=== PATIENT | female | born 1970 | race African-American/Black ===

== ENCOUNTER 2017-02-27 10:51 | Emergency (ER) | payer SELFPAY ==
[~2017-02-27] VITALS: Ht 170.2 cm; Wt 81.6 kg
[~2017-02-27 10:51] MED LIST: MOTRIN800 MG PO; PERCOCET 325 MG1 TA2 PO
--- NOTE | 2017-02-27 11:22 | ED SKIN/ALLERGY COMPLAINT ---
History of Present Illness General Chief Complaint: Allergy Symptoms Stated Complaint: ?ALLERGIC REACTION Source: patient, old records Exam Limitations: no limitations Vital Signs & Intake/Output Vital Signs & Intake/Output Vital Signs Date Time Temp Pulse Resp B/P B/P Pulse O2 O2 Flow FiO2 Mean Ox Delivery Rate 02/27 1331 97.0 81 18 128/72 99 Room Air 02/27 1117 98 Room Air 02/27 1059 98.0 98 18 151/93 99 Room Air Allergies Coded Allergies: Iodinated Contrast- Oral and IV Dye (Intermediate, HIVES 02/27/17) MDX - Bismuth Subsalicylate (From PEPTO BISMOL) (Intermediate, HIVES 11/11/11) Reconcile Medications Amoxicillin/Potassium Clav (Augmentin 875-125 Tablet) 875 MG-125 MG TABLET 1 TAB PO BID abscess Triage Note: PT STATES THAT SHE WOKE THIS AM WITH SWOLLEN EYES ,LIPS AND TONGUE. TOOK NO MEDS AND THE SWELLING STARTED TO GO DOWN. DENIES ANY NEW PRODUCTS. PT ALSO POINTED OUT THAT SHE HAS A LARGE LUMP IN HER NECK. DENIES DIFFICULTY SWALLOWING Triage Nurses Notes Reviewed? yes Onset: Abrupt Duration: week(s): (1), constant Timing: recent history Severity: moderate Severity Numbers: 6 Possible Factors: no cause identified Associated Symptoms: fever chills HPI: 46-year-old female with history of biliary colic presents to the ER for evaluation complaining of generalized malaise not feeling well with subjective fever chills for the past 1 week. She states she woke up this morning and her eyes appeared swollen and she felt tingling and swelling in her lips and tongue. She is not taken anything for her symptoms. No history of allergic reactions in the past or similar symptoms. Symptoms have improved without taking anything however she still feels lethargic. She denies fever chills at this time no nausea no vomiting. She denies any rash or skin. She states that about a week ago when the symptoms began she noticed a lump in her throat sticking out of her neck. No history of similar symptoms in the past no history of thyroid problems. No recent weight loss (ROMEL CASILLAS,STEPHANIE) Past History Travel History Traveled to [place] past 21 day No Medical History Any Pertinent Medical History? 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 No (STEPHANIE LOZADA) Review of Systems Review of Systems Constitutional: Reports: see HPI. Comments Review of systems: See HPI, All other systems negative. Constitutional, see hpi HEENT: No visual changes no sore throat no congestion Cardiovascular: No chest pain , no palpitation Skin: no rashes, no change in skin Respiratory: No dyspnea no cough no sputum GI: No nausea no vomiting, no diarrhea : No dysuria Muscle skeletal: No joint pain, no joint swelling, no back pain, no neck pain, Neurologic: No numbness no confusion, no headache Psych: No stress Heme/endocrine: No bruising Immunology: No lymphadenopathy (STEPHANIE LOZADA) Physical Exam Physical Exam General Appearance: well developed/nourished, no apparent distress, alert Comments: Well-developed well-nourished patient in no apparent distress. Head/Face: Atraumatic, no maxillary/frontal sinus tenderness, no facial swelling Eyes: PERRL, EOMI, no conjunctival injection. No nystagmus Ear:External auditory canal and Tympanic membranes clear, no erythema, no FB. Nose: atraumatic.Normal inspection Throat: Moist mucous membranes.Pharynx normal. No pharyngeal erythema/exudate seen. No stridor/drooling or assymetry. No swelling or edema. No trismus no uvula displacement Neck: Supple, no overlying erythema induration fluctuance nontender no lymphadenopathy, FROM Back: FROM Cardiovascular: Regular rate and rhythms no murmurs Respiratory: No respiratory distress. Patient speaking in full complete sentences. Breath sounds clear to auscultation bilaterally: NO W/R/R Extremities: full range of motion Neuro: awake, alert, and oriented to person, place and time. There were no obvious focal neurologic abnormalities. Skin: Warm & dry;No appreciable rash on exposed skin Psych: Mood affect normal, normal memory normal judgment. (STEPHANIE LOZADA) Progress Differential Diagnosis: allergic reaction, anaphylaxis, contact dermatitis, thryoid disorder,a bscess, malignancy, ludwigs, epilgotittis, strep pharyngiits Plan of Care: Orders Procedure Date/time Status TSH REFLEX 02/276 Complete COMPREHENSIVE METABOLIC PANEL 02/28 1216 Complete CBC WITHOUT DIFFERENTIAL 02/28 1216 Complete Laboratory Tests 02/27/17 1231: Anion Gap 9, Estimated GFR > 60, BUN/Creatinine Ratio 21.1, Glucose 82, Calcium 9.8, Total Bilirubin 0.6, AST 18, ALT 25, Alkaline Phosphatase 54, Total Protein 8.1, Albumin 4.8, Globulin 3.3, Albumin/Globulin Ratio 1.5, TSH &T3 &Free T4 Intrp 1.460, CBC w Diff NO MAN DIFF REQ, RBC 4.38, MCV 99.2 H, MCH 33.3 H, RDW 13.7, MPV 7.7, Gran % 75.4 H, Lymphocytes % 13.8 L, Monocytes % 6.8, Eosinophils % 3.9, Basophils % 0.1, Absolute Granulocytes 8.5 H, Absolute Lymphocytes 1.6, Absolute Monocytes 0.8 H, Absolute Eosinophils 0.4, Absolute Basophils 0, PUBS MCHC 33.6 Patient medicated with Solu-Medrol IV labs ordered ultrasound ordered secondary to allergy to IV contrast I discussed with the patient at length all of their results. Speaking in full complete sentences in no apparent distress no drooling I had an extensive conversation regarding need for close follow up with their primary care physician/ent this week as well as return precautions. I answered all of their questions, they feel comfortable with the plan and follow-up care. I discussed with the patient/family the medications that they will receive. I gave them signs and symptoms that could indicate an adverse reaction. I have advised them to limit their activities until they can see how they respond to the medication. (ROMEL CASILLAS,STEPHANIE) Diagnostic Imaging: Viewed by Me: Ultrasound. Discussed w/RAD: Ultrasound. Radiology Impression: PATIENT: JOSEPH FAY PRESENT AGE: 46 PATIENT ACCOUNT NO: [id number] : 69 LOCATION: [facility] ORDERING PHYSICIAN: STEPHANIE CASILLAS SERVICE DATE: 02/27/17-1249 EXAM TYPE: US - US- SOFT TISSUES OF HEAD & NECK EXAMINATION: US THYROID CLINICAL INFORMATION: 46- year-old female with a palpable midline lump in the neck. The lump has been there for several months. She reports trouble swallowing. Rule out abscess. COMPARISON: None TECHNIQUE: Linear transducer galicia-scale and color Doppler examination with attention to the region of the thyroid. FINDINGS: SIZE: Measurements of the thyroid lobes and nodules are given in sagittal, anteroposterior and transverse dimensions respectively. Right Thyroid Lobe: The right lobe measures 4.8 x 1.6 x 1.9 cm. Left Thyroid Lobe: The left lobe measures 4.6 x 1.7 x 2.1 cm. Isthmus: The isthmus measures 0.3 cm. PARENCHYMA: The gland echotexture is within normal limits. Thyroid vascularity is within normal limits. RIGHT THYROID LOBE: No nodules. ISTHMUS: No nodules. LEFT THYROID LOBE: No nodules. NODES: There is a 0.9 x 1 cm lymph node within the right lateral neck. There is a 0.7 cm lymph node within the left lateral neck. The palpable lesion measures 2.9 x 2.3 x 2.2 cm. It is heterogeneous in echotexture and appears cystic. It demonstrates vascularity around its periphery. It contains a somewhat thick septation. IMPRESSION: 1. The thyroid gland is normal in size. 2. There are small bilateral lymph nodes within the neck as described. 3. The palpable lesion within the midline neck region measures 2.9 x 2.3 x 2.2 cm. It is primarily cystic but contains a somewhat thick septation within its mid aspect. In the correct clinical setting, this may represent an abscess. However, the etiology of this lesion is uncertain. Further evaluation with cross -sectional imaging, i.e. contrast-enhanced CT examination may be of benefit in further characterizing this lesion. DICTATED BY: DYAN LAZO MD DATE/TIME DICTATED:02/27/171325 BLENDER / COOK:CHANDRIKA DATE/TIME TRANSCRIBED:1325 CONFIDENTIAL, DO NOT COPY WITHOUT APPROPRIATE AUTHORIZATION. < Electronically signed in Other Vendor System> SIGNED BY: DYAN LAZO MD 02/27/17 3515 (STEPHANIE LOZADA) Departure Departure Time of Disposition: 1403 Disposition: HOME OR SELF CARE Condition: Stable Clinical Impression Primary Impression: Abscess Referrals: PATIENT HAS NO PRIMARY CARE DR (PCP/Family) Additional Instructions: augmentin as directed. follow up with ear nose and throat physician dr castro. return in 2-3 days for check up. return at anytime sooner with any concerns thsi was sent to [facility] Departure Forms: Customer Survey General Discharge Information Prescriptions: Current Visit Scripts Amoxicillin/Potassium Clav (Augmentin 875-125 Tablet) 1 TAB PO BID #20 TAB (STEPHANIE LOZADA) PA/[employer] Co-Sign Statement Statement: ED Attending supervision documentation- I saw and evaluated the patient. I have also reviewed all the pertinent lab results and diagnostic results. I agree with the findings and the plan of care as documented in the PA's/[employer]'s documentation. x I have reviewed the ED Record and agree with the PA's/[employer]'s documentation. [] Additions or exceptions (if any) to the PAs/[employer]'s note and plan are summarized below: [] (OSWALDO ALONZO,BERNARDO)
[2017-02-27 12:45] LABS: ABSOLUTE BASOPHIL COUNT 0 /CUMM (0.0-0.2); ABSOLUTE EOSINOPHIL COUNT 0.4 /CUMM (0.0-0.7); ABSOLUTE GRANULOCYTE CT 8.5 /CUMM (1.4-6.5); ABSOLUTE LYMPH COUNT 1.6 /CUMM (1.2-3.4); ABSOLUTE MONOCYTE COUNT 0.8 /CUMM (0.10-0.60); BASOPHIL % 0.1 % (0.0-2.0); EOSINOPHIL % 3.9 % (0-5); GRANULOCYTE % 75.4 % (42.2-75.2); HEMATOCRIT 43.5 % (37-47); MEAN CORPUSCULAR HGB 33.3 PG (27.0-31.0); MEAN CORPUSCULAR HGB CONC 33.6 G/DL (33.0-37.0); MEAN CORPUSCULAR VOLUME 99.2 FL (81.0-99.0); MEAN PLATELET VOLUME 7.7 FL (7.4-10.4); PLATELET COUNT 260 /CUMM (130-400); RBC DISTRIBUTION WIDTH 13.7 % (11.5-14.5); RED BLOOD CELL CT 4.38 /CUMM (4.20-5.40); WHITE BLOOD CELL COUNT 11.3 /CUMM (4.8-10.8)
[2017-02-27 13:31] VITALS: BP 128/72
--- NOTE | 2017-02-27 13:43 | ULTRASOUND REPORT ---
EXAMINATION: US THYROID CLINICAL INFORMATION: 46-year-old female with a palpable midline lump in the neck. The lump has been there for several months. She reports trouble swallowing. Rule out abscess. COMPARISON: None TECHNIQUE: Linear transducer galicia-scale and color Doppler examination with attention to the region of the thyroid. FINDINGS: SIZE: Measurements of the thyroid lobes and nodules are given in sagittal, anteroposterior and transverse dimensions respectively. Right Thyroid Lobe: The right lobe measures 4.8 x 1.6 x 1.9 cm. Left Thyroid Lobe: The left lobe measures 4.6 x 1.7 x 2.1 cm. Isthmus: The isthmus measures 0.3 cm. PARENCHYMA: The gland echotexture is within normal limits. Thyroid vascularity is within normal limits. RIGHT THYROID LOBE: No nodules. ISTHMUS: No nodules. LEFT THYROID LOBE: No nodules. NODES: There is a 0.9 x 1 cm lymph node within the right lateral neck. There is a 0.7 cm lymph node within the left lateral neck. The palpable lesion measures 2.9 x 2.3 x 2.2 cm. It is heterogeneous in echotexture and appears cystic. It demonstrates vascularity around its periphery. It contains a somewhat thick septation. IMPRESSION: 1. The thyroid gland is normal in size. 2. There are small bilateral lymph nodes within the neck as described. 3. The palpable lesion within the midline neck region measures 2.9 x 2.3 x 2.2 cm. It is primarily cystic but contains a somewhat thick septation within its mid aspect. In the correct clinical setting, this may represent an abscess. However, the etiology of this lesion is uncertain. Further evaluation with cross-sectional imaging, i.e. contrast-enhanced CT examination may be of benefit in further characterizing this lesion.
[2017-02-27] MEDS ORDERED: AUGMENTIN 875-1 EACH PO (14:04)
== END 2017-02-27 14:24 ==
LOC: ERH 10:51
PROVIDERS: Physician Assistant Medical
DX: L02.91 Cutaneous abscess, unspecified (principal); R53.81 Other malaise; R22.1 Localized swelling, mass and lump, neck
CPT/HCPCS: 96374; J2930

== ENCOUNTER 2017-02-28 05:57 | Observation (INO) | payer OTHER ==
[~2017-02-28] VITALS: Ht 171.4 cm; Wt 81.6 kg
[~2017-02-28 05:57] MED LIST changes: +AUGMENTIN 875-1 EACH PO
--- NOTE | 2017-02-28 06:12 | ED GI/GU/ABDOMINAL COMPLAINT ---
History of Present Illness General Chief Complaint: Nausea, Vomiting, Diarrhea Stated Complaint: NVD MAY HAVE ALLERGIC REACTION TO MED Source: patient Exam Limitations: no limitations Allergies Coded Allergies: Iodinated Contrast- Oral and IV Dye (Intermediate, HIVES 02/27/17) MDX - Bismuth Subsalicylate (From PEPTO BISMOL) (Intermediate, HIVES 11/11/11) Reconcile Medications Amoxicillin/Potassium Clav (Augmentin 875-125 Tablet) 875 MG-125 MG TABLET 1 TAB PO BID abscess Triage Nurses Notes Reviewed? yes Is pt currently ? No Past History Travel History Traveled to [place] past 21 day No Medical History Any Pertinent Medical History? 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 No Review of Systems Review of Systems Constitutional: Reports: no symptoms. Progress Plan of Care: Orders Procedure Date/time Status CT ABD & PELVIS W/O IV CONTRAS 02/28 0619 Active TROPONIN LEVEL 02/28 0609 Active LIPASE 02/28 0609 Active HEPATIC FUNCTION PANEL 02/28 06 Active CBC WITHOUT DIFFERENTIAL 02/28 0609 Active BASIC METABOLIC PANEL 02/28 0609 Active AMYLASE 02/28 06 Active EKG 02/28 06 Active Departure Departure Disposition: HOME OR SELF CARE Condition: Stable Referrals: PATIENT HAS NO PRIMARY CARE DR (PCP/Family) Departure Forms: Customer Survey General Discharge Information
--- NOTE | 2017-02-28 06:21 | NUR ---
PER PT SEEN EARLIER FOR ? ALLERGIC REACTION NOW VOMITTING, UNCONTROLLABLY AND STOMACH FEELS LIKE IT IS "GOING TO EXPLODE" ACTIVELY VOMITING IN TRIAGE DIRECTLY TO ROOM 12, PT CLAMMY AND VOMITING SCANT AMTS OF LIQUID
--- NOTE | 2017-02-28 06:31 | ED GI/GU/ABDOMINAL COMPLAINT ---
See Addendum History of Present Illness General Chief Complaint: Nausea, Vomiting, Diarrhea Stated Complaint: NVD MAY HAVE ALLERGIC REACTION TO MED Source: patient, family Exam Limitations: no limitations Vital Signs & Intake/Output Vital Signs & Intake/Output Vital Signs Date Time Temp Pulse Resp B/P B/P Pulse O2 O2 Flow FiO2 Mean Ox Delivery Rate 02/28 0622 96.2 99 30 182/88 98 Reconcile Medications Amoxicillin/Potassium Clav (Augmentin 875-125 Tablet) 875 MG-125 MG TABLET 1 TAB PO BID abscess Triage Note: PER PT SEEN EARLIER FOR ? ALLERGIC REACTION NOW VOMITTING, UNCONTROLLABLY AND STOMACH FEELS LIKE IT IS "GOING TO EXPLODE" ACTIVELY VOMITING IN TRIAGE DIRECTLY TO ROOM 12, PT CLAMMY AND VOMITING SCANT AMTS OF LIQUID Triage Nurses Notes Reviewed? yes ? n Is pt currently ? No HPI: 46y F coming in for N/V/D starting midnight. SHe was seen here earlier yesterday due to allergic reaction. Now she is vomiting uncontrollably, with blood streak in vomitus, and felt like her stomach "is about to explode". She is still actively vomiting. Pt is clammy. (CALIN ALONZO,LIZ REEVES) Allergies Coded Allergies: Iodinated Contrast- Oral and IV Dye (Intermediate, [facility] 02/27/17) bismuth subsalicylate (From PEPTO-BISMOL) (Intermediate, [facility] 02/28/17) (LIANNE ALONZO,KEATON Pate) Past History Travel History Traveled to [place] past 21 day No Medical History Any Pertinent Medical History? 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 No (CALIN ALONZO,LIZ REEVES) Review of Systems Review of Systems Constitutional: Reports: see HPI. GI: Reports: see HPI, diarrhea, vomiting. (CALIN ALONZO,LIZ REEVES) Physical Exam Physical Exam Gastrointestinal: active vomiting with liquid Core Measures ACS in differential dx? No Severe Sepsis Present: No Septic Shock Present: No (CALIN ALONZO,LIZ REEVES) Progress Differential Diagnosis: gastritis, PUD/GERD Plan of Care: Orders Procedure Date/time Status Regular Diet 02/[address] in observation 02/28 1004 Active ED Holding Orders 02/28 1004 Active Vital Signs 02/28 1004 Active Code Status 02/28 1004 Active LACTIC ACID 02/[address] NECK WO IV CONTRAST 02/28 0955 Active Add-on Test (ER Only) 02/28 0927 Active MAGNESIUM 02/28 0745 Complete LACTIC ACID 02/28 0701 Complete TROPONIN LEVEL 02/28 0609 Complete LIPASE 02/28 0609 Complete HEPATIC FUNCTION PANEL 02/28 0609 Complete CBC WITHOUT DIFFERENTIAL 02/28 0609 Complete BASIC METABOLIC PANEL 02/28 0609 Complete AMYLASE 02/28 0609 Complete EKG 02/28 0609 Active Current Medications Sig/Rosetta Start time Last Medication Dose Stop Time Status Admin Ketorolac 30 MG ONCE ONE 02/28 1000 UNVr 02/28 Tromethamine 02/28 1001 1001 (Toradol) Pantoprazole Sodium 40 MG ONCE ONE 02/28 0630 CAN (Protonix) 02/28 0631 Laboratory Tests 02/28/17 0745: Lactic Acid 2.1 02/28/17 0745: Anion Gap 11, Estimated GFR > 60, BUN/Creatinine Ratio 27.5 H, Glucose 163 H, Calcium 9.9, Magnesium 1.4 L, Total Bilirubin 0.7, Direct Bilirubin 0.4, AST 19 , ALT 25, Alkaline Phosphatase 52, Troponin I < 0.01, Total Protein 8.0, Albumin 4.6, Amylase 91, Lipase 93, CBC w Diff MAN DIFF ORDERED, RBC 4.43, MCV 99.9 H, MCH 33.5 H, RDW 14.1, MPV 8.2, Gran % 92.2 H, Lymphocytes % 2.7 L, Monocytes % 4.6, Eosinophils % 0.5, Basophils % 0 L, Absolute Granulocytes 25.5 H, Segmented Neutrophils 85 H, Band Neutrophils 3, Absolute Lymphocytes 0.7 L, Lymphocytes 5 L, Monocytes 6, Absolute Monocytes 1.3 H, Eosinophils 1, Absolute Eosinophils 0.1, Absolute Basophils 0, Anisocytosis 1+, PUBS MCHC 33.5 Diagnostic Imaging: Viewed by Me: CT Scan. Discussed w/RAD: CT Scan. Radiology Impression: PATIENT: JOSEPH FAY PRESENT AGE: 46 PATIENT ACCOUNT NO: [id number] : 69 LOCATION: [facility] ORDERING PHYSICIAN: LIZ LAYTON MD SERVICE DATE: 02/28/17 EXAM TYPE: CAT - CT ABD & PELVIS W/O IV CONTRAS EXAMINATION: CT ABDOMEN AND PELVIS WITHOUT CONTRAST CLINICAL INFORMATION: Gastritis. Nausea, vomiting, and diarrhea. COMPARISON: Abdominal CT March 14, 2014 per TECHNIQUE: Multidetector volumetric imaging was performed from the superior aspect of the liver through the pubic symphysis. Sagittal and coronal reformatted images were obtained on the technologist's workstation. FINDINGS: The lung bases are clear. Limited evaluation of the unenhanced liver, spleen, adrenal glands, gallbladder, and pancreas reveals no definite abnormality. The kidneys are symmetric in size without evidence of hydronephrosis or nephrolithiasis. The large and small bowel are normal in caliber without evidence of mechanical obstruction. No focal inflammatory changes adjacent to the large or the small bowel. The appendix is normal. There is no free air and there is no intra-abdominal free fluid. No mesenteric or retroperitoneal adenopathy. There is aortoiliac atherosclerotic calcification. The pelvic viscera are normal. No pelvic adenopathy. No free fluid within the pelvis. There are no acute osseous abnormalities. No significant soft tissue abnormality. IMPRESSION: No acute findings within the abdomen or pelvis. DICTATED BY: KETAN PEREZ MD DATE/TIME DICTATED:02/28/17728 GREASE PACKER:CHANDRIKA DATE/TIME TRANSCRIBED:02/28/17728 CONFIDENTIAL, DO NOT COPY WITHOUT APPROPRIATE AUTHORIZATION. <Electronically signed in Other Vendor System> SIGNED BY: KETAN PEREZ MD 02/28/1737 Initial ED EKG: SR AT 99 WITH IVCD, NO ISCHEMIC CHANGES, NO CHANGE FROM PRIOR EKG Prior EKG: unchanged Comments: Patient continues to have intractable vomiting and nausea despite multiple rounds of different antiemetics. Patient with blood cell count has also increased 27,000. We'll discussed with GI and then anticipate admission for intractable vomiting. Patient did receive Solu-Medrol while in the emergency department yesterday afternoon. Discussed with gastroenterology. They recommend just continue IV antiemetics and IV fluids. (LIANNE ALONZO,KEATON Pate) Departure Departure Condition: Stable Referrals: PATIENT HAS NO PRIMARY CARE DR (PCP/Family) Departure Forms: Customer Survey General Discharge Information (CALIN ALONZO,LIZ REEVES) Departure Disposition: STILL A PATIENT Clinical Impression Primary Impression: Intractable vomiting Secondary Impressions: Leukocytosis Observation Note Spoke With: SCOTTY ALONZO,KANDACE Mcbride Physician Advisor Notified: KEATON ABDALLA MD Place Patient In: Non-ED OBS Care Area Rationale for Observation: My rational for observation is as follows [IV FLUIDS, IV ANTIEMETICS, GI CONSULTATION, FOLLOW UP CT CSAN AND POSSIBLE ENT CONSULTATION]. (LIANNE ALONZO,KEATON Pate)
--- NOTE | 2017-02-28 07:00 | NUR ---
UNABLE TO COMPLETE CT, PT UNABLE TO KIM.
--- NOTE | 2017-02-28 07:03 | NUR ---
CONT TO VOMIT PROFUSELY, STRINGS OF BLOOD NOTED.
--- NOTE | 2017-02-28 07:13 | NUR ---
CONT TO VOMIT, PT AWARE WE ARE TRYING TO STOP VOMITING
--- NOTE | 2017-02-28 07:18 | NUR ---
ASSUMED CARE, TO CT SCAN.
--- NOTE | 2017-02-28 07:22 | NUR ---
RETURNED FROM CT SCAN.
--- NOTE | 2017-02-28 07:30 | NUR ---
VOMITIED SMALL AMOUNT, MEDICATED WITH REGLAN 10 MG IV.
--- NOTE | 2017-02-28 07:37 | CT SCAN REPORT ---
EXAMINATION: CT ABDOMEN AND PELVIS WITHOUT CONTRAST CLINICAL INFORMATION: Gastritis. Nausea, vomiting, and diarrhea. COMPARISON: Abdominal CT March 14, 2014 per TECHNIQUE: Multidetector volumetric imaging was performed from the superior aspect of the liver through the pubic symphysis. Sagittal and coronal reformatted images were obtained on the technologist's workstation. FINDINGS: The lung bases are clear. Limited evaluation of the unenhanced liver, spleen, adrenal glands, gallbladder, and pancreas reveals no definite abnormality. The kidneys are symmetric in size without evidence of hydronephrosis or nephrolithiasis. The large and small bowel are normal in caliber without evidence of mechanical obstruction. No focal inflammatory changes adjacent to the large or the small bowel. The appendix is normal. There is no free air and there is no intra-abdominal free fluid. No mesenteric or retroperitoneal adenopathy. There is aortoiliac atherosclerotic calcification. The pelvic viscera are normal. No pelvic adenopathy. No free fluid within the pelvis. There are no acute osseous abnormalities. No significant soft tissue abnormality. IMPRESSION: No acute findings within the abdomen or pelvis.
--- NOTE | 2017-02-28 07:47 | NUR ---
BLOOD DRAWN AND SENT TO LAB. LAV,ANITA,ZIMMERMAN
[2017-02-28 07:55] LABS: ABSOLUTE BASOPHIL COUNT 0 /CUMM (0.0-0.2); ABSOLUTE EOSINOPHIL COUNT 0.1 /CUMM (0.0-0.7); ABSOLUTE GRANULOCYTE CT 25.5 /CUMM (1.4-6.5); ABSOLUTE LYMPH COUNT 0.7 /CUMM (1.2-3.4); ABSOLUTE MONOCYTE COUNT 1.3 /CUMM (0.10-0.60); BASOPHIL % 0 % (0.0-2.0); EOSINOPHIL % 0.5 % (0-5); GRANULOCYTE % 92.2 % (42.2-75.2); HEMATOCRIT 44.2 % (37-47); MEAN CORPUSCULAR HGB 33.5 PG (27.0-31.0); MEAN CORPUSCULAR HGB CONC 33.5 G/DL (33.0-37.0); MEAN CORPUSCULAR VOLUME 99.9 FL (81.0-99.0); MEAN PLATELET VOLUME 8.2 FL (7.4-10.4); PLATELET COUNT 251 /CUMM (130-400); RBC DISTRIBUTION WIDTH 14.1 % (11.5-14.5); RED BLOOD CELL CT 4.43 /CUMM (4.20-5.40)
--- NOTE | 2017-02-28 08:00 | NUR ---
VOMITED BROWN BILE WITH STREAKS OF BLOOD. (200 ML), C/O EPIGASTRIC BURNING.
[2017-02-28 08:13] LABS: WHITE BLOOD CELL COUNT 27.6 /CUMM (4.8-10.8)
--- NOTE | 2017-02-28 08:37 | NUR ---
CRITICAL TEST RESULTS [id number] JOSEPH FAY 46 F TESTS AND RESULTS: LACTIC ACID 2.1 Results received and read back by: JUANA DE Results received date and time: 02/28/17 0838 The following provider was notified of the results, and read the results back: Notified date and time: 02/28/17 at 0830
--- NOTE | 2017-02-28 09:00 | NUR ---
RESTLESS, STILL C/O NAUSEA, VOMITING BROWN EMESIS. EVALUATED BY DR. ABDALLA.
--- NOTE | 2017-02-28 09:59 | NUR ---
MEDICATED FOR PAIN, TO CT SCAN.
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
--- NOTE | 2017-02-28 10:32 | NUR ---
REPEAT LACTIC AND 1ST SET OF BLOOD CULTURES DRAWN AND SENT TO LAB.
--- NOTE | 2017-02-28 10:56 | NUR ---
2ND SET OF BLOOD CULTURE DRAWN AND SENT TO LAB.
--- NOTE | 2017-02-28 11:04 | NUR ---
HOUSE STAFF HERE TO EVALUATE. MEDICATED FOR ABDOMINAL PAIN.
--- NOTE | 2017-02-28 11:15 | CT SCAN REPORT ---
EXAMINATION: CT SOFT TISSUE NECK WITHOUT CONTRAST CLINICAL INFORMATION: Cystic lesion in neck. COMPARISON: Ultrasound of the neck 02/27/2017. TECHNIQUE: A noncontrast axial CT scan of the neck was obtained with generation of coronal and sagittal reformatted images. DLP: 461.46 mGy-cm. FINDINGS: There is a 2.3 x 2.3 x 2.8 cm well-defined low density mass in the neck in the midline between the inferior margin of the hyoid bone extending to the level of the upper trachea. It has Hounsfield units of approximately 30-40. It corresponds to the mass demonstrated on the thyroid ultrasound. 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 The mildly hyperdense contents may be consistent with proteinaceous contents or infection. No discrete septae are demonstrated on this noncontrast study. There is no cervical lymphadenopathy. There are small multilevel lymph nodes in the neck bilaterally. The parotid glands are homogeneous in attenuation. The submandibular glands are normal. No contour abnormality is seen within the oral cavity or pharyngeal mucosal space. The laryngeal structures are normal. The parapharyngeal fat is preserved. The vascular structures are poorly evaluated due to lack of intravenous contrast, but appear unremarkable. No extra mucosal soft tissue mass or fluid collection is seen. No retropharyngeal fluid collection is seen. The thyroid gland is normal. The superior mediastinum is unremarkable. The lung apices are clear; there are a few bullae bilaterally. The mastoid air cells and visualized portions of the paranasal sinuses are well-aerated. The temporomandibular joints are normal. No periapical disease is identified. There are degenerative changes in the cervical spine and there is reversal of the normal cervical lordosis.. The imaged portions of the brain parenchyma are unremarkable. IMPRESSION: 1. 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 Mildly increased density may be consistent with proteinaceous contents or infection. 2. There is no cervical lymphadenopathy.
--- NOTE | 2017-02-28 12:35 | NUR ---
PT REPORTS IMPROVEMENT IN PAIN. AMBULATORY AROUND HALLWAYS MAKING PHONE CALLS
--- NOTE | 2017-02-28 12:59 | NUR ---
IVF APPEAR TO BE VERY SLOWLY INFUSING. PT REPORTS IRRITATION TO THE AREA. NO PHLEBITIS OR INFILTRATION NOTED. OFFERED TO EST NEW IV AND PT REQUESTED SITE THIS RN ACCESSED YESTERDAY. #20 EST TO RAC AND FIRST IV DC'ED. NS IVF BOLUS RUNNING WIDE OPEN
--- NOTE | 2017-02-28 13:06 | Admission Certification ---
See Addendum Admission Certification Certification Statement - As attending physician, I certify that at the time of - admission, based on clinical presentation, severity of - symptoms, need for further diagnostic testing and - therapeutic interventions, and risk of adverse outcomes - without in-hospital treatment, in my clinical assessment, - this patient requires an acute hospital stay for a minimum - of two nights or longer. I have also considered psychsocial - factors such as support system, advanced age, financial - issues, cognitive issues, and failed out-patient treatments, - past re-admission history, safety of patient, and lack of - compliance as applicable. Specific rationale supporting this admission is: Intractable nausea and vomiting in patient with suspected thyroglossal cyst.
--- NOTE | 2017-02-28 13:29 | NUR ---
SECOND LITER INFUSING. MD AT BEDSIDE PER PT REQUEST TO DISCUSS DISPO PLANNING AND FEELING BETTER.
--- NOTE | 2017-02-28 15:25 | NUR ---
Emergency Dept [facility] Admit Note: To be admitted to [facility] by DR GAN with INTRACTABLE N/V as the diagnosis, to [facility] MED/OBSERVATION location. Nursing Business Objects Developer and admitting notified 02/28/17 at 1005 PT WILLGO TO ROOM 204-1
--- NOTE | 2017-02-28 15:33 | NUR ---
VSS, STATES ABDOMEN FEELING BETTER, NAUSEA IMPROVED. OFFERS NO COMPLAINTS. NS GTT AT 100ML/HR ON DIALAFLOW
--- NOTE | 2017-02-28 16:18 | NUR ---
INFX MANAGER PHP DR DURON TO BEDSIDE
--- NOTE | 2017-02-28 16:30 | NUR ---
REPORT GIVEN TO RECEIVING RN, AWAITING TRANSPORT
--- NOTE | 2017-02-28 16:41 | NUR ---
PT TRANSPORTED TO FLOOR
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
[2017-02-28 16:45] VITALS: BP 122/78
--- NOTE | 2017-02-28 16:45 | NUR ---
AT THIS TIME PT ADMITTED TO ROOM 204-1 FROM THE ER. PT A/O/VX3, ON RA, VSS, DENIES CP, DENIES SOB, DENIES ANY PAIN OR DISCOMFORT, DENIES NAUSEA AT THIS TIME, PT AMBULATED TO BED WITH A STEADY GAIT, IVF RUNNING PER EMAR, PT OREINTED TO ROOM AND CALL MARTIN, SAFETY MAINTAINED, NEEDS WITHIN REACH
[2017-02-28 22:17] VITALS: BP 122/78
[2017-03-01 06:36] VITALS: BP 132/80
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
--- NOTE | 2017-03-01 07:39 | Patient Discharge Instructions ---
Discharge Instructions General Discharge Information You were seen/treated for: nausea and vomitting You had these procedures: CT neck Special Instructions: please follow up with your New PCP Dr. Zayas upon discharge Please follow up with your ENT specialist within two weeks of discharge Diet Continue normal diet: Yes Recommended Diet: Regular Acute Coronary Syndrome Inclusion Criteria At DC or during hospital stay patient has or had the following: ACS DIAGNOSIS No Discharge Core Measures Meds if any: Prescribed or Continued at Discharge Meds if any: NOT Prescribed or Continued at Discharge Congestive Heart Failure Inclusion Criteria At DC or during hospital stay patient has or had the following: CHF DIAGNOSIS No Discharge Core Measures Meds if any: Prescribed or Continued at Discharge Meds if any: NOT Prescribed or Continued at Discharge Cerebrovascular accident Inclusion Criteria At DC or during hospital stay patient has or had the following: CVA/TIA Diagnosis No Discharge Core Measures Meds if any: Prescribed or Continued at Discharge Meds if any: NOT Prescribed or Continued at Discharge Venous thromboembolism Inclusion Criteria VTE Diagnosis No VTE Type NONE VTE Confirmed by (Test) NONE Discharge Core Measures - Per Current guidelines, there needs to be overlap - treatment for the first 5 days of Warfarin therapy. - If discharged on Warfarin prior to 5 days of - overlap therapy, the patient will need to be - assessed for post discharge needs including - *Post discharge parental anticoagulation - *Warfarin and/or parental anticoagulation education - *Follow up date to check INR post discharge At least 5 days overlap therapy as Inpatient No Meds if any: Prescribed or Continued at Discharge Note: Overlap Therapy is Warfarin and Anticoagulant Meds if any: NOT Prescribed or Continued at Discharge
[2017-03-01 08:20] LABS: ABSOLUTE EOSINOPHIL COUNT 0.4 /CUMM (0.0-0.7); GRANULOCYTE % 73.7 % (42.2-75.2)
[2017-03-01 08:59] LABS: ABSOLUTE BASOPHIL COUNT 0 /CUMM (0.0-0.2); ABSOLUTE GRANULOCYTE CT 9.4 /CUMM (1.4-6.5); ABSOLUTE LYMPH COUNT 2.2 /CUMM (1.2-3.4); ABSOLUTE MONOCYTE COUNT 0.7 /CUMM (0.10-0.60); BASOPHIL % 0.4 % (0.0-2.0); MEAN CORPUSCULAR HGB 33.9 PG (27.0-31.0); MEAN CORPUSCULAR VOLUME 99.7 FL (81.0-99.0); MEAN PLATELET VOLUME 8.6 FL (7.4-10.4); PLATELET COUNT 207 /CUMM (130-400); RBC DISTRIBUTION WIDTH 13.8 % (11.5-14.5)
[2017-03-01 09:12] LABS: HEMATOCRIT 32.5 % (37-47); RED BLOOD CELL CT 3.26 /CUMM (4.20-5.40); WHITE BLOOD CELL COUNT 12.7 /CUMM (4.8-10.8)
== END 2017-03-01 10:44 ==
LOC: ERH 05:57 → ERHI 10:04 → EDBEDREQ 11:02 → ENRESERV 15:15 → ENTRNSPT 16:30 → CMPTRNSPT 16:34 → 2NB 16:39 → ENPENDDIS 03-01 09:24 → 2NB 03-01 10:44
PROVIDERS: Internal Medicine; Pediatrics; ADMIT Internal Medicine
DX: R11.2 Nausea with vomiting, unspecified (principal); G89.4 Chronic pain syndrome; F41.9 Anxiety disorder, unspecified; D72.829 Elevated white blood cell count, unspecified; R22.1 Localized swelling, mass and lump, neck; E87.2 Acidosis; E83.42 Hypomagnesemia
CPT/HCPCS: 6040; 36415; 74176; 80307; 82436; 87040; 93005; 93010; 96360; 96361; 96365; 96375; 96376; 99291; G0378; J1200; J1650; J1885; J2405; J2550; J2765